=== PATIENT | female | born 1950 | race Two or more races ===

== ENCOUNTER 2017-08-28 20:11 | Emergency (ER) | payer MEDICAID ==
[~2017-08-28] VITALS: Ht 160 cm; Wt 63.5 kg
[2017-08-28] MEDS ORDERED: ONDANSETRON HCL 4 MG/2 ML VIAL IV ONE (20:30)
[2017-08-28] MEDS ORDERED: MORPHINE SULFATE 4 MG/ML SYR/VIAL IV ONE (20:45)
[2017-08-28] MEDS ORDERED: ETOMIDATE (2MG/ML) 20ML VIAL IV ONE (21:15)
[2017-08-28 22:37] VITALS: BP 163/89
[2017-08-29] MEDS ORDERED: TETANUS-DIPTH-ACEL PERTUSSIS 0.5ML SYRG IM ONE
== END 2017-08-29 00:11 | disposition home or self-care (01) ==
LOC: EDBD 20:11 → ER 20:11
DX: S43.015A Anterior dislocation of left humerus, initial encounter (principal); S01.81XA Laceration without foreign body of other part of head, initial encounter; W18.39XA Other fall on same level, initial encounter; Y93.89 Activity, other specified; Y92.098 Other place in other non-institutional residence as the place of occurrence of the external cause; Y99.8 Other external cause status
CPT/HCPCS: 12011; 23650; 70450; 70486; 73030; 73060; 73080; 90471; 90715; 96374; 96375; 99152; 99291; J2270; J2405